=== PATIENT | male | born 1950 | race Caucasian/White ===

== ENCOUNTER 2021-07-30 05:50 | Emergency (ER) | payer OTHER ==
[~2021-07-30] VITALS: Ht 180.3 cm; Wt 104.6 kg
[~2021-07-30 05:50] MED LIST: ATIVAN1 MG PO; AUGMENTIN 875-875 MG PO; CITALOPRAM10 MG PO; DILTIAZEM240 M1 PO; METOPROLOL SUCC25 M2 PO
[2021-07-30 06:28] LABS: BASO % 0.4 % (0.0-1.0); EOS # 0.3 10*3/uL (0.0-0.4); EOS % 3.4 % (1.0-4.0); HEMATOCRIT 46.7 % (42.0-52.0); LYMPH # 3.5 10*3/uL (1.3-4.4); LYMPH % 36.4 % (27.0-41.0); MEAN CELL VOLUME 90.9 fl (80.0-94.0); MEAN CORPUSCULAR HGB 31.1 pg (27.0-31.0); MEAN CORPUSCULAR HGB CONC 34.3 g/dl (33.0-37.0); MEAN PLATELET VOLUME 10.6 fl (9.6-12.3); MONO % 10.4 % (3.0-9.0); NEUT # 4.7 10*3/uL (2.3-7.9); NEUT % 49.1 % (47.0-73.0); PLATELET COUNT AUTOMATED 168 10*3/uL (130-400); RED BLOOD COUNT 5.14 10*6/uL (4.50-5.90); RED CELL DISTRI WIDTH 12.6 % (0-14.5); WHITE BLOOD COUNT 9.5 10*3/uL (4.8-10.8)
[2021-07-30 06:36] LABS: ALKALINE PHOSPHATASE 88 U/L (45-117); BUN 23 mg/dl (7-24); CHLORIDE 107 mmol/L (98-107); CREATININE 1.01 mg/dL (0.70-1.30); POTASSIUM 3.5 mmol/L (3.5-5.1); SGOT/AST 17 IU/L (3-35); SGPT/ALT 20 U/L (12-78); SODIUM 140 mmol/L (136-145); TOTAL PROTEIN 7.6 gm/dL (6.4-8.2)
== END 2021-07-30 06:44 | disposition short-term general hospital (02) ==
LOC: ED 05:50
PROVIDERS: Internal Medicine
DX: I21.3 ST elevation (STEMI) myocardial infarction of unspecified site (principal); Z90.89 Acquired absence of other organs; Z98.890 Other specified postprocedural states; Z79.899 Other long term (current) drug therapy; Z91.041 Radiographic dye allergy status; Z88.8 Allergy status to other drugs, medicaments and biological substances